=== PATIENT | male | born 1975 | race Two or more races ===

== ENCOUNTER 2016-11-04 03:32 | Emergency (ER) | payer BC, OTHER ==
[~2016-11-04] VITALS: Ht 172.7 cm; Wt 90.7 kg
[2016-11-04 04:07] LABS: Basophils # (auto) 0.1 uL; Basophils % (auto) 0.5 % (0.0-2.0); Eosinophils # (auto) 0.2 uL; Eosinophils % (auto) 1.6 % (0.0-7.0); Hematocrit 47.9 % (41.0-53.0); Hemoglobin 16.2 g/dL (13.5-17.5); Lymphocytes # (auto) 3.9 uL; Lymphocytes % (auto) 26.3 % (10.0-50.0); Mean Corpuscular Hemoglobin 27.3 pg (28.0-32.0); Mean Corpuscular Hgb Conc. 33.8 g/dL (32.0-36.0); Mean Corpuscular Volume 80.9 fL (80.0-100.0); Mean Platelet Volume 8.6 fL (7.4-10.4); Monocytes # (auto) 1.2 uL; Monocytes % (auto) 8.2 % (0.0-12.0); Neutrophils # (auto) 9.3 uL; Neutrophils % (auto) 63.4 % (37.0-80.0); Platelet Count (auto) 288 10^3/uL (140-450); Red Cell Distribution Width 13.4 % (11.6-16.0); White Blood Cell 14.6 10^3/uL (4.4-10.8)
[2016-11-04 04:26] LABS: Albumin 3.6 g/dL (3.4-5.0); Anion Gap 12 (5-15); Aspartate Aminotransferase 31 U/L (15-37); BUN/Creatinine Ratio 16.5; Blood Urea Nitrogen 22 mg/dL (7-18); Calcium 8.3 mg/dL (8.5-10.1); Carbon Dioxide 22 mmol/L (21-32); Chloride 105 mmol/L (98-107); GFR African American 76 mL/min; GFR Non-African American 63 mL/min; Glucose 141 mg/dL (74-106); Magnesium 2.1 mg/dL (1.6-2.6); Sodium 139 mmol/L (136-145)
[2016-11-04 04:31] LABS: Alkaline Phosphatase 68 U/L (45-117); Bilirubin, Total 0.4 mg/dL (0.2-1.0); Total Protein 7.3 g/dL (6.4-8.2)
[2016-11-04 04:38] LABS: Urine RBC None Seen /hpf (0 - 3)
[2016-11-04 04:41] LABS: Potassium 2.9 mmol/L (3.5-5.1)
[2016-11-04 04:46] LABS: Urine Bilirubin Negative (Negative); Urine Blood Negative /uL (Negative); Urine Color Yellow (Yellow); Urine Glucose Normal (Normal); Urine Ketone Negative (Negative); Urine Nitrite Negative (Negative); Urine Squamous Epithelial Cell FEW /hpf (<5); Urine Urobilinogen Normal (Negative); Urine pH 6.5 (5.0-8.0)
[2016-11-04 04:50] LABS: B-Type Natriuretic Peptide 6.36 pg/mL (0-100)
[2016-11-04 04:54] LABS: INR 1.04 (0.9-1.15); Partial Thromboplastin Time 27.5 sec (22.64-33.71); Prothrombin Time 11.2 sec (9.37-12.3)
[2016-11-04 04:59] LABS: Temperature: 22.2 C (20.0-25.0)
[2016-11-04] MEDS ORDERED: POTASSIUM CHL 20 Meq TABLET PO ONE ×2 (05:07→05:15)
[2016-11-04 11:45] VITALS: BP 138/88
== END 2016-11-04 12:06 | disposition home or self-care (01) ==
LOC: ER 03:32
DX: I47.1 Supraventricular tachycardia (principal); E87.6 Hypokalemia; F12.10 Cannabis abuse, uncomplicated; I10 Essential (primary) hypertension; R73.9 Hyperglycemia, unspecified
CPT/HCPCS: 36415; 71010; 80053; 81001; 83735; 83880; 84443; 84484; 85025; 85610; 85730; 93005; 94761; 99285; G0434